=== PATIENT | female | born 1945 | race Caucasian/White ===

== ENCOUNTER 2020-08-11 10:08 | Emergency (ER) | payer OTHER, MEDICARE ==
[2020-08-11 10:15] VITALS: BP 134/69; PULSE 84; TEMP 97.3; BMI 28.8
== END 2020-08-11 11:25 | disposition home or self-care (01) ==
LOC: JER 10:08 → JERFT 10:08
DX: M79.604 Pain in right leg (principal)
CPT/HCPCS: 93971-TC; 99284-25